=== PATIENT | male | born 1945 | race Caucasian/White ===

== ENCOUNTER 2022-11-25 14:31 | Inpatient (IN) | payer MEDICARE, OTHER ==
[2022-11-25 14:55] VITALS: BMI 24.3
[2022-11-25 16:08] LABS: BASO % 0.9 % (0-2.0); EOS % 7.2 % (0-4.5); HEMATOCRIT 31.3 % (35.4-49); HEMOGLOBIN 10.5 GM/dL (11.7-16.9); LYMPH % 5.8 % (8-40); MCH 28.5 pg (25.7-33.7); MCHC 33.7 g/dl (32.0-35.9); MEAN CELL VOLUME 84.7 fl (80-96); MEAN PLT VOLUME 7.9 fl (7.5-11.1); MONO % 10.6 % (3.8-10.2); NEUT % 75.5 % (42.8-82.8); PLATELET COUNT 214 10^3/uL (134-434); RBC 3.69 M/mm3 (4.00-5.60); WHITE BLOOD COUNT 7.6 K/mm3 (4.0-10.0)
[2022-11-25 16:26] LABS: CHLORIDE 97 mmol/L (98-107); POTASSIUM 4.5 mmol/L (3.5-5.1); SODIUM 132 mmol/L (136-145)
[2022-11-25 16:29] LABS: CALCIUM 8.6 mg/dL (8.5-10.1)
[2022-11-25 16:30] LABS: ACTIVATED PTT 40.1 SECONDS (25.2-36.5); ALBUMIN 3.6 g/dl (3.4-5.0); ANION GAP 15 MMOL/L (8-16); BLOOD UREA NITROGEN 76.8 mg/dL (7-18); CO2 20 mmol/L (21-32); GLUCOSE,RANDOM 126 mg/dL (74-106); INR 1.32 (0.83-1.09); MAGNESIUM 2.3 mg/dL (1.8-2.4); PROTHROMBIN TIME (PATIENT) 15.3 SEC (9.7-13.0)
[2022-11-25 16:33] LABS: PHOSPHOROUS 4.8 mg/dL (2.5-4.9); SGOT/AST 20 U/L (15-37); SGPT/ALT 20 U/L (13-61)
[2022-11-25 16:34] LABS: BILIRUBIN,TOTAL 1.2 mg/dL (0.2-1); TOT PROT 7.7 g/dl (6.4-8.2)
[2022-11-25 16:36] LABS: ALK PHOS 144 U/L (45-117)
[2022-11-25 16:40] LABS: CREATININE 8.9 mg/dL (0.55-1.3)
[2022-11-26 06:51] LABS: CHLORIDE 98 mmol/L (98-107); POTASSIUM 4.4 mmol/L (3.5-5.1); SODIUM 131 mmol/L (136-145)
[2022-11-26 06:52] LABS: CALCIUM 8.2 mg/dL (8.5-10.1)
[2022-11-26 06:53] LABS: ANION GAP 15 MMOL/L (8-16); BLOOD UREA NITROGEN 85.3 mg/dL (7-18); CO2 18 mmol/L (21-32); GLUCOSE,RANDOM 103 mg/dL (74-106)
[2022-11-26] MEDS ORDERED: SODIUM CHLORIDE 250 ML IV PRN ×2 (06:59→14:11)
[2022-11-26 07:12] LABS: CREATININE 9.5 mg/dL (0.55-1.3)
[2022-11-26] MEDS ORDERED: TRIMETHOBENZAMIDE HCL 200MG/2ML INJ IM ONE (08:20)
[2022-11-26] MEDS: ASPIRIN 81 MG CHEWABLE TABLETS PO SCH (15:25)
[2022-11-26] MEDS ORDERED: INSULIN (NOVOLOG) ASPART 100 UNITS/ML 10ML VIAL ONE (18:19)
[2022-11-26] MEDS: INSULIN SLIDING SCALE (NOVOLOG) 1 VIAL SQ SCH (18:33)
[2022-11-27] MEDS: INSULIN SLIDING SCALE (NOVOLOG) 1 VIAL SQ SCH ×3 (07:33→16:18)
[2022-11-27] MEDS ORDERED: SODIUM CHLORIDE 250 ML IV PRN (09:17)
[2022-11-27 10:07] LABS: HEMATOCRIT 27.7 % (35.4-49); HEMOGLOBIN 9.6 GM/dL (11.7-16.9); MCHC 34.6 g/dl (32.0-35.9); MEAN CELL VOLUME 83.7 fl (80-96); MEAN PLT VOLUME 7.9 fl (7.5-11.1); PLATELET COUNT 178 10^3/uL (134-434); RBC 3.31 M/mm3 (4.00-5.60); RDW 16.7 % (11.9-15.9); WHITE BLOOD COUNT 6.6 K/mm3 (4.0-10.0)
[2022-11-27] MEDS: ASPIRIN 81 MG CHEWABLE TABLETS PO SCH ×2 (10:12→14:29)
[2022-11-27 10:13] LABS: POTASSIUM 3.8 mmol/L (3.5-5.1)
[2022-11-27 10:17] LABS: CALCIUM 8.1 mg/dL (8.5-10.1)
[2022-11-27 10:18] LABS: ALBUMIN 3.2 g/dl (3.4-5.0)
[2022-11-27 10:21] LABS: CREATININE 6.6 mg/dL (0.55-1.3)
[2022-11-27 10:22] LABS: BILIRUBIN,TOTAL 1.4 mg/dL (0.2-1)
[2022-11-27 10:40] LABS: BLOOD UREA NITROGEN 53.2 mg/dL (7-18)
[2022-11-28] MEDS: INSULIN SLIDING SCALE (NOVOLOG) 1 VIAL SQ SCH ×3 (07:53→16:51)
[2022-11-28] MEDS: ASPIRIN 81 MG CHEWABLE TABLETS PO SCH (09:29)
[2022-11-28 09:31] LABS: HEMATOCRIT 30.8 % (35.4-49); HEMOGLOBIN 10.3 GM/dL (11.7-16.9); MCH 28.5 pg (25.7-33.7); MCHC 33.4 g/dl (32.0-35.9); MEAN CELL VOLUME 85.3 fl (80-96); MEAN PLT VOLUME 8.2 fl (7.5-11.1); PLATELET COUNT 209 10^3/uL (134-434); RBC 3.61 M/mm3 (4.00-5.60); RDW 17.3 % (11.9-15.9); WHITE BLOOD COUNT 7.4 K/mm3 (4.0-10.0)
[2022-11-28 10:21] LABS: PHOSPHOROUS 2.6 mg/dL (2.5-4.9)
[2022-11-28 10:26] LABS: BLOOD UREA NITROGEN 40.4 mg/dL (7-18)
[2022-11-28 10:29] LABS: CREATININE 4.8 mg/dL (0.55-1.3)
[2022-11-28] MEDS ORDERED: SODIUM CHLORIDE 250 ML IV PRN (14:52)
[2022-11-29] MEDS: INSULIN SLIDING SCALE (NOVOLOG) 1 VIAL SQ SCH ×3 (06:54→16:55)
[2022-11-29] MEDS ORDERED: INSULIN (LEVEMIR) 100 UNITS/ML UNITS SQ SCH (07:00)
[2022-11-29 10:27] LABS: HEMATOCRIT 29.2 % (35.4-49); HEMOGLOBIN 10.1 GM/dL (11.7-16.9); MCH 29.1 pg (25.7-33.7); MCHC 34.7 g/dl (32.0-35.9); MEAN CELL VOLUME 83.7 fl (80-96); PLATELET COUNT 202 10^3/uL (134-434); RBC 3.49 M/mm3 (4.00-5.60); RDW 16.6 % (11.9-15.9); WHITE BLOOD COUNT 7.3 K/mm3 (4.0-10.0)
[2022-11-29 10:43] LABS: POTASSIUM 4.6 mmol/L (3.5-5.1)
[2022-11-29 10:44] LABS: CALCIUM 8.4 mg/dL (8.5-10.1)
[2022-11-29 10:45] LABS: BLOOD UREA NITROGEN 58.1 mg/dL (7-18)
[2022-11-29 10:48] LABS: CREATININE 6.2 mg/dL (0.55-1.3)
[2022-11-29] MEDS: EPOETIN ALFA-EPBX 10,000 UNIT/ML VIAL IVPUSH ONE ×2 (12:30→12:58)
[2022-11-29] MEDS: ASPIRIN 81 MG CHEWABLE TABLETS PO SCH (13:01)
[2022-11-29] MEDS ORDERED: INSULIN (NOVOLOG) ASPART 100 UNITS/ML 10ML VIAL ONE ×2 (16:51→17:02)
[2022-11-30] MEDS: INSULIN SLIDING SCALE (NOVOLOG) 1 VIAL SQ SCH ×3 (06:24→16:56)
[2022-11-30 10:29] LABS: POTASSIUM 4.1 mmol/L (3.5-5.1)
[2022-11-30 10:34] LABS: CALCIUM 8.7 mg/dL (8.5-10.1)
[2022-11-30] MEDS ORDERED: INSULIN (NOVOLOG) ASPART 100 UNITS/ML 10ML VIAL ONE (10:34)
[2022-11-30 10:35] LABS: ALBUMIN 3.5 g/dl (3.4-5.0); BLOOD UREA NITROGEN 36.1 mg/dL (7-18)
[2022-11-30] MEDS: ASPIRIN 81 MG CHEWABLE TABLETS PO SCH (10:36)
[2022-11-30 10:38] LABS: CREATININE 4.6 mg/dL (0.55-1.3)
[2022-11-30 10:39] LABS: TOT PROT 7.4 g/dl (6.4-8.2)
[2022-11-30] MEDS: ACETAMINOPHEN 325 MG TABLET (FP) PO PRN (18:53)
[2022-11-30] MEDS: HEPARIN NA (PORCINE) 5,000 UNITS/ML 1ML VIAL SQ SCH (21:33)
[2022-12-01] MEDS: INSULIN SLIDING SCALE (NOVOLOG) 1 VIAL SQ SCH ×3 (06:05→16:24)
[2022-12-01] MEDS: HEPARIN NA (PORCINE) 5,000 UNITS/ML 1ML VIAL SQ SCH ×3 (06:06→21:25)
[2022-12-01 09:31] LABS: BASO % 1.5 % (0-2.0); EOS % 7.9 % (0-4.5); HEMATOCRIT 31.4 % (35.4-49); HEMOGLOBIN 10.8 GM/dL (11.7-16.9); LYMPH % 11.3 % (8-40); MCH 29.3 pg (25.7-33.7); MCHC 34.3 g/dl (32.0-35.9); MEAN CELL VOLUME 85.4 fl (80-96); MEAN PLT VOLUME 8.9 fl (7.5-11.1); MONO % 11.9 % (3.8-10.2); NEUT % 67.4 % (42.8-82.8); PLATELET COUNT 217 10^3/uL (134-434); RBC 3.68 M/mm3 (4.00-5.60); RDW 17.1 % (11.9-15.9); WHITE BLOOD COUNT 7.8 K/mm3 (4.0-10.0)
[2022-12-01] MEDS: ASPIRIN 81 MG CHEWABLE TABLETS PO SCH (09:48)
[2022-12-01 10:08] LABS: POTASSIUM 4.9 mmol/L (3.5-5.1)
[2022-12-01 10:12] LABS: CALCIUM 8.3 mg/dL (8.5-10.1)
[2022-12-01 10:13] LABS: ALBUMIN 3.5 g/dl (3.4-5.0); BLOOD UREA NITROGEN 45.8 mg/dL (7-18)
[2022-12-01 10:14] LABS: MAGNESIUM 1.8 mg/dL (1.8-2.4)
[2022-12-01 10:16] LABS: CREATININE 5.7 mg/dL (0.55-1.3); PHOSPHOROUS 2.9 mg/dL (2.5-4.9)
[2022-12-01 10:17] LABS: BILIRUBIN,TOTAL 1.1 mg/dL (0.2-1); TOT PROT 7.5 g/dl (6.4-8.2)
[2022-12-01] MEDS ORDERED: INSULIN (NOVOLOG) ASPART 100 UNITS/ML 10ML VIAL ONE (11:23)
[2022-12-01 23:15] VITALS: RESP 18
[2022-12-02] MEDS: HEPARIN NA (PORCINE) 5,000 UNITS/ML 1ML VIAL SQ SCH ×3 (06:55→21:33)
[2022-12-02] MEDS ORDERED: LEVOTHYROXINE NA 25 MCG TABLET (FP) PO SCH (07:00)
[2022-12-02] MEDS: INSULIN SLIDING SCALE (NOVOLOG) 1 VIAL SQ SCH ×3 (07:05→16:51)
[2022-12-02] MEDS: ASPIRIN 81 MG CHEWABLE TABLETS PO SCH (10:46)
[2022-12-02] MEDS ORDERED: EPOETIN ALFA-EPBX 3,000 UNIT/ML VIAL SQ ONE (11:10)
[2022-12-02] MEDS ORDERED: SODIUM CHLORIDE 250 ML IV PRN (11:10)
[2022-12-02 12:57] LABS: HEMATOCRIT 31.6 % (35.4-49); HEMOGLOBIN 10.5 GM/dL (11.7-16.9); MCH 28.2 pg (25.7-33.7); MCHC 33.3 g/dl (32.0-35.9); MEAN CELL VOLUME 84.5 fl (80-96); MEAN PLT VOLUME 8.5 fl (7.5-11.1); PLATELET COUNT 249 10^3/uL (134-434); RBC 3.74 M/mm3 (4.00-5.60); RDW 16.8 % (11.9-15.9); WHITE BLOOD COUNT 8.2 K/mm3 (4.0-10.0)
[2022-12-02 13:41] LABS: POTASSIUM 4.4 mmol/L (3.5-5.1)
[2022-12-02 13:42] LABS: CALCIUM 8.1 mg/dL (8.5-10.1)
[2022-12-02 13:43] LABS: BLOOD UREA NITROGEN 46.7 mg/dL (7-18)
[2022-12-02 13:46] LABS: CREATININE 5.3 mg/dL (0.55-1.3)
[2022-12-03] MEDS: HEPARIN NA (PORCINE) 5,000 UNITS/ML 1ML VIAL SQ SCH ×3 (06:01→21:54)
[2022-12-03] MEDS: INSULIN SLIDING SCALE (NOVOLOG) 1 VIAL SQ SCH ×3 (06:01→16:18)
[2022-12-03] MEDS: LEVOTHYROXINE NA 100 MCG TABLET (FP) PO SCH (06:02)
[2022-12-03 08:39] LABS: POTASSIUM 4.4 mmol/L (3.5-5.1)
[2022-12-03 08:47] LABS: CALCIUM 8.4 mg/dL (8.5-10.1)
[2022-12-03 08:48] LABS: BLOOD UREA NITROGEN 35.9 mg/dL (7-18)
[2022-12-03 08:51] LABS: CREATININE 4.9 mg/dL (0.55-1.3)
[2022-12-03] MEDS: ASPIRIN 81 MG CHEWABLE TABLETS PO SCH (09:05)
[2022-12-03] MEDS ORDERED: SODIUM CHLORIDE 250 ML IV PRN (15:10)
[2022-12-04] MEDS: HEPARIN NA (PORCINE) 5,000 UNITS/ML 1ML VIAL SQ SCH ×3 (05:14→21:06)
[2022-12-04] MEDS: INSULIN SLIDING SCALE (NOVOLOG) 1 VIAL SQ SCH ×3 (06:25→16:19)
[2022-12-04] MEDS: LEVOTHYROXINE NA 100 MCG TABLET (FP) PO SCH (06:27)
[2022-12-04 09:38] LABS: HEMATOCRIT 30.7 % (35.4-49); HEMOGLOBIN 10.4 GM/dL (11.7-16.9); MCH 28.4 pg (25.7-33.7); MCHC 33.8 g/dl (32.0-35.9); MEAN PLT VOLUME 8.3 fl (7.5-11.1); PLATELET COUNT 243 10^3/uL (134-434); RBC 3.65 M/mm3 (4.00-5.60); RDW 16.7 % (11.9-15.9); WHITE BLOOD COUNT 7.3 K/mm3 (4.0-10.0)
[2022-12-04 10:04] LABS: CALCIUM 8.3 mg/dL (8.5-10.1); POTASSIUM 4.4 mmol/L (3.5-5.1)
[2022-12-04 10:05] LABS: BLOOD UREA NITROGEN 43.9 mg/dL (7-18)
[2022-12-04] MEDS ORDERED: INSULIN (NOVOLOG) ASPART 100 UNITS/ML 10ML VIAL ONE (12:27)
[2022-12-04] MEDS: ASPIRIN 81 MG CHEWABLE TABLETS PO SCH (12:32)
[2022-12-04] MEDS: ACETAMINOPHEN 325 MG TABLET (FP) PO PRN (14:39)
[2022-12-05] MEDS: HEPARIN NA (PORCINE) 5,000 UNITS/ML 1ML VIAL SQ SCH ×3 (05:03→21:53)
[2022-12-05] MEDS: LEVOTHYROXINE NA 100 MCG TABLET (FP) PO SCH (06:04)
[2022-12-05] MEDS: INSULIN SLIDING SCALE (NOVOLOG) 1 VIAL SQ SCH ×3 (06:04→16:43)
[2022-12-05] MEDS: ASPIRIN 81 MG CHEWABLE TABLETS PO SCH (10:07)
[2022-12-05 10:11] LABS: HEMATOCRIT 31.3 % (35.4-49); HEMOGLOBIN 10.2 GM/dL (11.7-16.9); MCH 28.2 pg (25.7-33.7); MCHC 32.5 g/dl (32.0-35.9); MEAN CELL VOLUME 86.8 fl (80-96); MEAN PLT VOLUME 8.6 fl (7.5-11.1); PLATELET COUNT 249 10^3/uL (134-434); RBC 3.61 M/mm3 (4.00-5.60); RDW 16.7 % (11.9-15.9); WHITE BLOOD COUNT 7.3 K/mm3 (4.0-10.0)
[2022-12-05 10:26] LABS: POTASSIUM 4.6 mmol/L (3.5-5.1)
[2022-12-05 10:32] LABS: CALCIUM 7.9 mg/dL (8.5-10.1)
[2022-12-05 10:33] LABS: BLOOD UREA NITROGEN 32.2 mg/dL (7-18)
[2022-12-05 10:36] LABS: CREATININE 4.5 mg/dL (0.55-1.3)
[2022-12-06] MEDS: LEVOTHYROXINE NA 100 MCG TABLET (FP) PO SCH (06:03)
[2022-12-06] MEDS: HEPARIN NA (PORCINE) 5,000 UNITS/ML 1ML VIAL SQ SCH ×2 (06:03→14:30)
[2022-12-06] MEDS: INSULIN SLIDING SCALE (NOVOLOG) 1 VIAL SQ SCH ×2 (06:10→11:16)
[2022-12-06] MEDS ORDERED: SODIUM CHLORIDE 250 ML IV PRN (08:49)
[2022-12-06] MEDS ORDERED: EPOETIN ALFA-EPBX 4,000 UNIT/ML VIAL SQ ONE (10:00)
[2022-12-06] MEDS: ASPIRIN 81 MG CHEWABLE TABLETS PO SCH (10:16)
[2022-12-06 14:25] VITALS: BP 144/86; PULSE 79; TEMP 98.1
== END 2022-12-06 16:54 | disposition home or self-care (01) | DRG 682 ==
LOC: JER 14:31 → JERBED 17:06 → J6S 11-26 15:14 → OBSVTOIN 11-28 10:11
PROVIDERS: ADMIT Internal Medicine; ATTEND Internal Medicine
PROC: 5A1D70Z Performance of Urinary Filtration, Intermittent, Less than 6 Hours Per Day (ICD-10-PCS; principal; 2022-11-26)
PROC: 5A1D70Z Performance of Urinary Filtration, Intermittent, Less than 6 Hours Per Day (ICD-10-PCS; 2022-11-27)
PROC: 5A1D70Z Performance of Urinary Filtration, Intermittent, Less than 6 Hours Per Day (ICD-10-PCS; 2022-11-29)
PROC: 5A1D70Z Performance of Urinary Filtration, Intermittent, Less than 6 Hours Per Day (ICD-10-PCS; 2022-12-02)
PROC: 5A1D70Z Performance of Urinary Filtration, Intermittent, Less than 6 Hours Per Day (ICD-10-PCS; 2022-12-04)
PROC: 5A1D70Z Performance of Urinary Filtration, Intermittent, Less than 6 Hours Per Day (ICD-10-PCS; 2022-12-06)
DX: I12.0 Hypertensive chronic kidney disease with stage 5 chronic kidney disease or end stage renal disease (principal); N18.6 End stage renal disease; E11.22 Type 2 diabetes mellitus with diabetic chronic kidney disease; D63.1 Anemia in chronic kidney disease; E11.65 Type 2 diabetes mellitus with hyperglycemia; E03.9 Hypothyroidism, unspecified; I69.320 Aphasia following cerebral infarction; Z99.2 Dependence on renal dialysis
CPT/HCPCS: 0241U-QW; 36415; 80048; 80053; 80061; 82962; 83036; 83735; 84100; 84439; 84443; 85025; 85027; 85610; 85730; 86704; 86803; 87340; 87517; 93005; 93010; 99285-25; G0378; J1644; Q5106